=== PATIENT | male | born 1980 | race Caucasian/White ===

== ENCOUNTER → 2016-10-08 | Outpatient (CLI) | payer OTHER ==
[~2016-10-08] MED LIST: ARIP2TAB3 PO; FISH1CAP PO; LAMO100T5 PO; MULT-208 PO; RABE20TA18 PO; TRAM50TA PO
[2016-10-08 14:11] LABS: BASO # 0.1 x10^3/uL (0.0-0.2); BASO % 1 % (0-3); EOS % 2 % (0-3); HEMATOCRIT 42.6 % (39.0-53.0); HEMOGLOBIN 14.6 g/dL (13.0-17.5); LYMPH # 2.8 x10^3/uL (1.0-4.8); LYMPH % 31 % (24-48); MEAN CORPUSCULAR HEMOGLOBIN 32 pg (25-35); MEAN CORPUSCULAR HGB CONC 34 g/dL (31-37); MEAN CORPUSCULAR VOLUME 92 fL (79-100); MONO % 10 % (0-9); NEUT % 56 % (31-73); PLATELET COUNT 255 x10^3/uL (140-400); RED BLOOD COUNT 4.62 x10^6/uL (4.30-5.70); RED CELL DISTRIBUTION WIDTH 13.2 % (11.5-14.5); WHITE BLOOD COUNT 9.1 x10^3/uL (4.0-11.0)
[2016-10-08 14:23] LABS: INR 1.1 (0.8-1.1); PROTHROMBIN TIME PATIENT 13.3 SEC (11.7-14.0)
[2016-10-08 14:24] LABS: ALBUMIN 3.8 g/dL (3.4-5.0); CALCIUM 8.3 mg/dL (8.5-10.1); CREATININE 0.9 mg/dL (0.7-1.3); POTASSIUM 3.6 mmol/L (3.5-5.1)
--- NOTE | 2016-10-08 14:24 | EKG ---
[facility] [address] [place] [address] Test Date: 2016-10-08 Test Time: 14:25:57 Pat Name: DIMITRY REILLY Department: Room: Gender: M Crm Specialist: KAMILLA : 1980 Requested By: ISSA ARSHAD Order Number: [id number] Reading MD: Measurements Intervals [place] Rate: 74 P: 45 MS: 168 QRS: -20 QRSD: 92 T: 6 QT: 378 QTc: 420 Interpretive Statements SINUS RHYTHM LEFTWARD AXIS OTHERWISE NORMAL ECG RI6.01 No previous ECG available for comparison
[2016-10-08 14:34] LABS: BILIRUBIN,URINE NEGATIVE (NEG); GLUCOSE,URINE NEGATIVE (NEG); NITRITE,URINE NEGATIVE (NEG); PROTEIN,URINE NEGATIVE (NEG-TRACE); UROBILINOGEN,URINE 0.2 mg/dL (0.2 mg/dL)
--- NOTE | 2016-10-08 14:49 | RAD ---
INDICATION: PRE OP LEFT SHOULDER REPLACEMENT COMPARISON: None. FINDINGS: 2 views of chest obtained. No focal airspace consolidation. Mediastinal contour is unremarkable. No gross osseous destructive lesion. Cardiac device subcutaneous soft tissues overlying cardiac silhouette. Degenerative spurring of spine. IMPRESSION: No focal airspace consolidation or edema.
[2016-10-08 15:15] LABS: BACTERIA,URINE 0 /HPF (0-FEW); RBC,URINE OCC /HPF (0-2); WBC,URINE 0 /HPF (0-4)
== END | disposition home or self-care (01) ==
LOC: SURGPAT 13:19
PROVIDERS: ATTEND Orthopaedic Surgery
DX: Z01.818 Encounter for other preprocedural examination (principal); Z96.612 Presence of left artificial shoulder joint
CPT/HCPCS: 36415; 71020; 80048; 81001; 82040; 83036; 85027; 85610; 85651; 85730; 87641; 93005

== ENCOUNTER 2016-10-21 08:45 | Inpatient (IN) | payer OTHER ==
[~2016-10-21] VITALS: Ht 177.8 cm; Wt 136.1 kg
[2016-10-27] VITALS (8 sets, daily range): BP systolic 109–127; BP diastolic 58–83
[2016-10-27] MEDS ORDERED: TRANEXAMIC ACID 1,000 MG in IV NS 50ML -- 1ST BAG INJ ONE (06:00)
[2016-10-27] MEDS ORDERED: HYDROcodone/APAP 7.5/325MG 1 TAB TABLET PO PRN (06:00)
[2016-10-27] MEDS ORDERED: MELOXICAM 7.5 MG TABLET PO PRN (06:00)
[2016-10-27] MEDS ORDERED: fentaNYL PF VIAL 100 MCG/2 ML VIAL IV PRN ×2 (07:00)
[2016-10-27] MEDS ORDERED: ONDANSETRON PF 4 MG/2 ML VIAL. IV PRN (07:00)
[2016-10-27] MEDS ORDERED: MORPHINE SULFATE 2 MG/ML DISP.SYRIN. IV PRN (07:00)
[2016-10-27] MEDS ORDERED: LIDOCAINE 1% 1 ML SYRINGE. ID PRN (07:00)
[2016-10-27] MEDS ORDERED: IV RINGERS,LACTATED 1000ML 1,000 ML IV SCH (07:00)
[2016-10-27] MEDS ORDERED: PROCHLORPERAZINE 10 MG/2 ML VIAL. IV PRN (07:00)
[2016-10-27] MEDS ORDERED: HYDROmorphone 2 MG/ML VIAL IV PRN ×3 (07:00→15:00)
[2016-10-27] MEDS ORDERED: TRANEXAMIC ACID 1,000 MG in IV NS 50ML -- 2ND BAG INJ ONE (08:00)
[2016-10-27] MEDS ORDERED: BUPIVACAINE MPF 0.5% 30 ML VIAL. ONE (10:12)
[2016-10-27] MEDS ORDERED: MIDAZOLAM HCL/PF 2 MG/2 ML VIAL. ONE (10:33)
[2016-10-27] MEDS ORDERED: ROCURONIUM 50 MG/5 ML VIAL. ONE (10:33)
[2016-10-27] MEDS ORDERED: fentaNYL PF VIAL 100 MCG/2 ML VIAL ONE ×3 (10:33→15:30)
[2016-10-27] MEDS ORDERED: ISOFLURANE 61 TO 120 MINUTES. IH ONE (10:35)
[2016-10-27] MEDS ORDERED: ONDANSETRON PF 4 MG/2 ML VIAL. ONE (10:35)
[2016-10-27] MEDS ORDERED: PROPOFOL 20 ML IV ONE ×2 (10:35→11:55)
[2016-10-27] MEDS ORDERED: DEXAMETHASONE SOD PHOS 20 MG/5 ML VIAL. ONE (10:35)
[2016-10-27] MEDS ORDERED: LIDOCAINE 2% PF Vial for OR 5 ML VIAL. ONE (10:35)
[2016-10-27] MEDS ORDERED: 0.9 % SODIUM CHLORIDE 50 ML VIAL. IJ ONE (11:58)
[2016-10-27] MEDS ORDERED: PHENYLEPHRINE 10 MG/ML VIAL. ONE (11:58)
--- NOTE | 2016-10-27 12:11 | HP ---
ADMIT DATE: 10/27/2016 CHIEF COMPLAINT: Left shoulder pain and weakness. HISTORY OF PRESENT ILLNESS: The patient has had about a 17-year history of left shoulder pain and weakness. It is his nondominant shoulder, first had problems in the [place] where he underwent a reverse Bankart stabilization and underwent a subsequent capsular shrinkage procedure at [facility]. He had an additional reverse Bankart procedure with the bony block performed by Dr. Elmo Valverde and recurrent instability, underwent a fourth procedure scar tissue excision and reverse Bankart repair, which did not help his ongoing instability or symptoms. He has constant pain in the left nondominant shoulder, can only elevate or forward flex to about 6 degrees and avoids a lot of his activities as a result. He says the shoulder comes in out of joint as he tries to raise it overhead. It keeps him awake at night. It has been significantly more painful in the last 6 months despite undergoing extensive physical therapy with little improvement. He can do his active biking and hiking activities. He has tried several braces without any help in the past as well. PAST MEDICAL HISTORY: Significant for bipolar disorder and esophageal reflux. PAST SURGICAL HISTORY: Multiple left shoulder surgeries. FAMILY HISTORY: Denies any family history. SOCIAL HISTORY: He is a current smoker about a half pack per day. Denies alcohol or drug use. MEDICATIONS: List is reviewed. ALLERGIES: INCLUDE FLUTICASONE, BUPROPION AND PANTOPRAZOLE. REVIEW OF SYSTEMS: Denies any chest pain, shortness of breath, fever, chills, radiating pain, focal weakness, numbness, tingling. PHYSICAL EXAMINATION: VITAL SIGNS: Per his admission sheet. HEENT: Atraumatic, normocephalic. HEART: Regular rate and rhythm. LUNGS: Clear to auscultation bilaterally. ABDOMEN: Benign. EXTREMITIES: Examination of the left shoulder again reveals very poor active range of motion, feelings of instability with any extremes of motion and extensive rotator cuff weakness. Normal examination of the contralateral shoulder, bilateral elbows and wrists. IMAGING: X-rays of the left shoulder show a bony block well positioned with screw fixation. MRI shows significant distortion at the joint level, but rotator cuff with a partial thickness tear of the distal supraspinatus through at least 50% of the tendon substance. IMPRESSION: Left shoulder pain and instability despite multiple surgeries. TREATMENT PLAN: Given his very severe limitations and multiple surgeries and physical therapy bracing that is all failed, he wants to provide to undergo a more definitive procedure to help his function, pain relief and stability of the shoulder. We did talk about the possibility of reverse total shoulder arthroplasty to address all of these issues, but did indicate that this is a low demand type of procedure which would limit his lifting, pushing, pulling. I would expect he will be able to a bicycle with it, but again if this were to fail, it is basically an end-of-the line salvage type procedure, which will leave him with very few options. He is so limited at this time. He does wish to proceed and understands the risks and benefits of possible infection, nerve or blood vessel damage, medical or other anesthetic complications, instability, limited range of motion and possibly continued pain among others. He will proceed with [facility] admission following the procedure. ISSA ARSHAD MD DR: TAYO/megan JOB#: [id number] / [id number]
[2016-10-27] MEDS ORDERED: oxyCODONE/APAP 5/325 1 TAB TABLET PO PRN (15:00)
[2016-10-27] MEDS ORDERED: 0.9 % SODIUM CHLORIDE 10 ML DISP.SYRIN. IV PRN (15:00)
[2016-10-27] MEDS ORDERED: PROCHLORPERAZINE 5 MG TABLET. PO PRN (15:00)
[2016-10-27] MEDS ORDERED: ZOLPIDEM 5 MG TABLET. PO PRN (15:00)
[2016-10-27] MEDS ORDERED: ACETAMINOPHEN 325 MG TABLET. PO PRN (15:00)
[2016-10-27] MEDS ORDERED: traMADol 50 MG TABLET PO PRN ×2 (15:00)
[2016-10-27] MEDS ORDERED: DEXTROSE 50% 25 GM / 50ML DISP.SYRIN. IV PRN (15:00)
--- NOTE | 2016-10-27 15:52 | RAD ---
Three-view left shoulder radiographs 10/27/2016 Clinical history: Post left shoulder surgery. Portable AP internal and external rotation and two transscapular portable digital radiographs of the left shoulder were obtained. The patient is status post left shoulder joint replacement. The prosthetic components are intact. No fracture or dislocation is seen. Impression: Post left shoulder joint replacement. No acute osseous abnormality is seen.
[2016-10-27] MEDS: NICOTINE 21MG PATCH. TD SCH (17:35)
[2016-10-27] MEDS: FERROUS SULFATE 325 MG TABLET. PO SCH (17:35)
[2016-10-27] MEDS: IV DEXTROSE 5 %-0.45 % NACL 1,000 ML IV SCH (17:37)
[2016-10-27] MEDS: CELECOXIB 200 MG CAPSULE. PO SCH (21:00)
--- NOTE | 2016-10-27 21:42 | PDOC4 ---
Operative Note Operative Note Date of surgery: 10/27/2016 Preoperative diagnosis: Left shoulder instability and pseudoparalysis, severe pain and DJD Postoperative diagnosis: Left shoulder instability DJD significant partial- thickness rotator cuff tear and biceps anchor fraying Operative procedure: Left reverse total shoulder arthroplasty and biceps tenodesis Surgeon: Betsy Anesthesia: Gen. endotracheal plus scalene block, Dr. Laurent Estimated blood loss 150 mL Complications: None Operative indications: Patient is a 36-year-old male that has had about a 17 year history of left shoulder pain instability weakness and severe limitations in his activities of daily living. He first had instability of his left shoulder due to an injury in the [place] underwent a posterior Bankart repair which unfortunately failed. He subsequently underwent a capsular shrinkage procedure it [facility] which likewise failed and underwent a posterior Bankart repair with bony block by Dr. Elmo Valverde which initially helped his stability but within a few months redeveloped his instability and underwent a additional procedure of attempted bony Bankart repair subsequently. He has had ongoing instability since each of these procedures and markedly increased pain over the past 6 months. He indicates he can only lift his arm about 60 at most if he attempts to stretch his arm any further than that which he cannot do actively, the shoulder tends to dislocate. He is extremely limited both in terms of his activities of daily living as well as his desired activities of active hiking and biking. The increased pain and limitations are very severely limiting to his activities and quality of life and he wants to proceed with a more definitive treatment. I had talked with him about possibility of a reverse total shoulder arthroplasty which could help his function as his rotator cuff was not functioning well he has degenerative changes at the glenohumeral joint. We did talk about the possibility of premature wear or loosening and the possibility of instability, infection, nerve or blood vessel damage medical or other anesthetic complications among others. All his questions were answered and above all he verbalizes understanding that he really has to limit any heavy lifting type activities or other issues that would cause the shoulder to loosen as this is a salvage type procedure designed to give him relief of his symptoms and hopefully reasonable limited function. He agrees to proceed with surgical evaluation and treatment today following informed consent Operative text: Patient was identified procedure verified patient placed in the supine position on operating table after adequate much of general endotracheal anesthesia and a pre-existing scalene block were obtained, he was placed in the beachchair position with the spider arm malave all bony prominences were well- padded and the left shoulder was prepped and draped in standard sterile fashion. After timeout was performed patient and procedure identified and verified, his recurrent posterior instability was verified, and an incision was made using a deltopectoral approach. Cephalic vein was taken laterally along with the deltoid. Clavipectoral fascia was taken down. The subscapularis was taken down at its insertion and was tagged biceps tendon was noted to be frayed at its base and was seen at [place] he had significant glenohumeral degenerative changes present. The humerus was then exposed and reaming carried out up to a size 15 where a cut was made to accommodate the reverse total shoulder arthroplasty component at a 10 version. Reaming was carried out and a size 15 provisional trial component was placed capsular release was carried out glenoid was exposed and a guidewire placed low centrally on the glenoid and reaming was carried out. Good bleeding bone was noted inferiorly his desired there was a small defect slightly posterior central and superior were some bone graft from the humeral head was placed following the glenoid baseplate preparation. Glenoid baseplate was placed with a standard 15 mm trabecular metal ingrowth surface which gave excellent stability. 2 48 mm screws were then placed inferiorly down the scapular spine and superiorly at the base of the coracoid both got excellent bite and were locked with locking caps. A 36 mm glenoid sphere was impacted in place to engage the Lawrence taper and sizing was carried out with a +6 standard implant. Excellent stability was noted throughout motion was full as desired and no impingement resulted. Further there was excellent tension on the deltoid as desired with good stability in all planes. Trial components were then removed from the humeral side and a size 15 Papo grit blast component was placed with excellent stability and a +6 standard liner was impacted into place. Thorough irrigation was carried out normal saline solution shoulder was reduced and had equivalent motion and stability to the trial fitting. Subscapularis was thoroughly repaired at its insertion biceps tenodesis was reinforced. Pectoralis release was not necessary during the procedure subcutaneous closure accomplished with buried Vicryl plus suture skin closure with paresh sterile dressings were applied patient was placed in an immobilizer extubated transferred to postop holding in stable condition having tolerated the procedure well ISSA ARSHAD MD Oct 27, 2016 21:42
[2016-10-27] MEDS: oxyCODONE/APAP 7.5/325 1 TAB TABLET PO PRN (22:57)
[2016-10-28] MEDS: CALCIUM CARBONATE 500 MG TAB.CHEW PO PRN ×2 (00:12→13:19)
[2016-10-28] MEDS: IV DEXTROSE 5 %-0.45 % NACL 1,000 ML IV SCH (00:59)
--- NOTE | 2016-10-28 02:19 | ACF ---
Admission Forms Criteria MUSCULOSKELETAL DISEASE GRG Clinical Indications for Admission to Inpatient Care (Place 'X' for any and all applicable criteria): Hospital admission is needed for appropriate care of the patient because of 1 or more of the following: [X]I. Fracture, dislocation, or other musculoskeletal injury requiring inpatient care(medical) as indicated by 1 or more of the following(4)(5)(6)(7) [ ]a) Vertebral fracture requiring observation for instability or neurologic compromise (8) [ ]b) Compartment syndrome (proven or cannot be ruled out during observation level of care) (9) [ ]c) Limb-threatening injury [ ]d) Major injury requiring inpatient stabilization such as traction initiation or external fixation before internal fixation or closure of complex or open fracture [ ]e) Major injury requiring inpatient treatment after emergency or observation level care (as appropriate) [X]f) Severe pain requiring acute inpatient management [ ]g) Injury with suspicion of abuse or neglect (eg., child, dependent elderly) [ ]II. Newly diagnosed or suspected bone, joint, or orthopedic device infection (e.g., osteomyelitis, septic arthritis) needing 1 or more of the following(1)(2)(3) [ ]a) IV antibiotics that cannot be initiated in other than inpatient setting (e.g., patient too unstable or home infusion not available) [ ]b) Device removal or replacement [ ]c) Bone or soft tissue debridement [ ]d) Joint drainage (drain placement or repetitive aspirations) [ ]III. Severe rheumatologic disease (e.g., systemic lupus erythematosus, rheumatoid arthritis) with complications or comorbidities (Also use Optimal Recovery Care Criteria or General Recovery Criteria as appropriate on the basis of predominant condition), including 1 or more of the following( 10)(11)(12)(13) [ ]a) Severe infection (e.g., AUTOMOBILE UPHOLSTERER infection, sepsis) (14) [ ]b) Respiratory complications, including 1 or more of the following : [ ]i) Pleural effusion with respiratory compromise [ ]ii) Pulmonary hypertension with congestive failure [ ]iii) Respiratory failure [ ]iv) Pulmonary hemorrhage (15) [ ]c) Hematologic disease, including 1 or more of the following: [ ]i) Coagulopathy with bleeding [ ]ii) Thrombosis with hypercoagulable state [ ]iii) Thrombotic thrombocytopenic purpura [ ]d) Cerebritis with seizures, psychosis, or other severe abnormalities [ ]e) Vertebral destruction with monitoring needed for cervical myelopathy& possible respiratory compromise [ ]f) Exacerbation that requires inpatient treatment (e.g., intravenous immunosuppression) (16) [ ]g) Acute renal failure [ ]h) Cerebritis with seizures, psychosis, Altered mental status, or other neurologic abnormalities [ ]i) Pericardial effusion with tamponade [ ]j) Vertebral destruction, with monitoring needed for cervical myelopathy and possible respiratory compromise [ ]IV. Severe vasculitis with complications or comorbidities (Also use Optimal Recovery Care Criteria General Recovery Criteria as appropriate on the basis of predominant condition), including 1 or more of the following(11)(12)(17)(18)(19)(20) [ ]a) Exacerbation that requires inpatient treatment (e.g., intravenous immunosuppression) (19)(21) [ ]b) Pulmonary hemorrhage (15) [ ]c) AUTOMOBILE UPHOLSTERER vasculitis with seizures, psychosis, Altered mental status that is severe or persistent, or other severe abnormalities (22) [ ]d) Cerebral infarction [ ]e) Gastrointestinal ischemia [ ]f) Gangrene or threatened amputation [ ]g) Renal failure (16) [ ]h) Other significant complications of vasculitis ( eg., tissue or organ ischemia, organ dysfunction ) [ ]V. Severe myopathy as indicated by 1 or more of the following (28)(29) [ ]a) New onset of airway compromise or inability to swallow [ ]b) Respiratory deterioration with observation needed for impending respiratory failure [ ]c) Exacerbation that requires inpatient treatment (e.g., intravenous immunosuppression) [ ]. Severe crystal gout (arthropathy) indicated by 1 or more of the following (23)(24) [ ]a) Severe pain requiring acute inpatient management [ ]b) Exacerbation that requires inpatient treatment (e.g., intravenous treatment) [ ]VII.Rhabdomyolysis and 1 or more of the following (25)(26)(27) [ ]a) Acute renal failure [ ]b) Need for intravenous hydration after emergency or observation level care (as appropriate) [ ]c) Inability to maintain oral hydration [ ]d) Change in mental status [ ]e) Electrolyte abnormality that remains after emergency or observation level care (as appropriate) [ ]VIII Post amputation complication, as indicated by ANY ONE of the following [ ]a) Infection [ ]b) Dehiscence [ ]c) Myodesis failure [ ]IX. Severe pain requiring acute inpatient management due to musculoskeletal condition [ ]X. Musculoskeletal Disease and ALL of the following: [ ]a) Symptom or finding for which emergency and observation care have failed or are not considered appropriate (Use General Criteria: Observation Care as appropriate) [ ]b) Presence of ANY ONE of the following [ ]i) A General Admission Criteria [ ]ii) A Pediatric General Admission Criteria The original [facility] [employer] content created by [facility] has been revised. The portions of the content which have been revised are identified through the use of italic text or in bold, and [facility] has neither reviewed nor approved the modified material. All other unmodified content is copyright [facility]. Please see references footnoted in the original [facility] edition 2016 Admission Criteria Met?: Yes JR VALENCIA Oct 28, 2016 02:19
[2016-10-28] MEDS ORDERED: MAGNESIUM HYDROXIDE 2,400 MG/30 ML ORAL.SUSP. PO PRN (06:00)
[2016-10-28] MEDS: oxyCODONE/APAP 7.5/325 1 TAB TABLET PO PRN ×2 (06:25→10:32)
[2016-10-28 07:30] VITALS: BP 126/70
[2016-10-28] MEDS: CELECOXIB 200 MG CAPSULE. PO SCH (07:55)
[2016-10-28] MEDS: FERROUS SULFATE 325 MG TABLET. PO SCH (07:55)
[2016-10-28] MEDS: NICOTINE 21MG PATCH. TD SCH (07:59)
[2016-10-28] MEDS ORDERED: SENNOSIDES/DOCUSATE 8.6/50MG TABLET. PO SCH (09:00)
[2016-10-28] MEDS ORDERED: MULTIVITAMIN with MINERAL TABLET. PO SCH (09:00)
[2016-10-28 15:15] VITALS: BP 139/86
[2016-10-28] MEDS ORDERED: BISACODYL 10 MG SUPP.RECT. PR PRN (16:00)
--- NOTE | 2016-10-28 22:12 | DS ---
DATE OF DISCHARGE: 10/28/2016 PRINCIPAL DIAGNOSIS: Left shoulder severe pain and instability, pseudoparalysis. PROCEDURE: Left reverse total shoulder arthroplasty. DISCHARGE INSTRUCTIONS: Activity level standard, reverse total shoulder precautions. May shower with dressing intact. Follow up in about [address] Meyer, physical therapy at the [facility] in the interim with passive and active range of motion. Permitted to avoid extreme internal rotation such as tucking in the shirt behind the back. Call for any uncontrolled pain, fever, chills, redness, drainage or other problems. DISPOSITION MEDICATIONS: Include [place] 7.5/325 one p.o. q. 6 hours p.r.n. pain. BRIEF DESCRIPTION OF HOSPITAL COURSE: The patient underwent an uncomplicated left reverse total shoulder arthroplasty yesterday. Postoperatively, did well. He is well controlled on pain medications following resolution of the pain block. His distal pulses and sensation are intact throughout. He remained stable medically and was discharged to home in stable condition. ISSA MEYER MD DR: TAYO/nts JOB#: [id number] / [id number]
--- NOTE | 2016-10-29 16:59 | PATHOLOGY ---
PATHOLOGY REPORT * * * * * * * * FINAL DIAGNOSIS: Segment of bone and soft tissue, left reverse total shoulder arthroplasty: - Degenerative arthritis. (JPM:mml; 10/29/2016) REPORT ELECTRONICALLY SIGNED BY: Gurpreet Coles M.D. DATE/TIME: 10/29/2016 16:58 * * * * * * * * GROSS PATHOLOGY: The specimen is received in formalin, labeled "Young-left shoulder bone and tissue" is a 5.4 x 5.2 x 1.7 cm garg-brown half spherical-shaped segment of bone. The specimen displays a 1.4 cm in diameter hole drilled into one aspect of the specimen on the periphery. The specimen displays a small amount of attached garg-brown soft friable tissue. The articular surface of the specimen is garg to brown and smooth with focal areas of erosion. Sectioning through the specimen reveals a yellow-garg hard trabeculated cut surface and an articular surface ranging in thickness from less than 0.1 cm up to 0.3 cm. Gum Sprayer sections of the specimen are submitted in cassette A1 following decalcification. (AKA; 10/28/2016) INITIAL CPT CODE(S): A; 45243, 56274 Professional services performed [place] [facility] [place] [address] Technical services performed by [facility] at [address] [place] [address] [address], [place] [address]. SPECIMEN(S) RECEIVED: A.Left shoulder bone and tissue CLINICAL HISTORY: Left shoulder pain and instability PATIENT: DIMITRY REILLY Fahad /AGE: 3 1980 (Age: 36) PATIENT #: [id number] ALT CASE #: SPECIMEN COLLECTION DATE: 10/27/2016 SPECIMEN RECEIVED DATE: 10/27/2016 [facility] - [id number] [place] [address] - PHONE: [phone] * * * END OF REPORT * * *
== END 2016-10-28 15:45 | disposition home or self-care (01) | DRG 483 ==
LOC: OPSVCIP 10-27 09:24 → 4 SOUTHEST 10-27 16:35
PROVIDERS: ADMIT Orthopaedic Surgery; ATTEND Orthopaedic Surgery
PROC: 0LS40ZZ Reposition Left Upper Arm Tendon, Open Approach (ICD-10-PCS; 2016-10-27)
PROC: 0RRK00Z Replacement of Left Shoulder Joint with Reverse Ball and Socket Synthetic Substitute, Open Approach (ICD-10-PCS; principal; 2016-10-27 11:00)
DX: M19.012 Primary osteoarthritis, left shoulder (principal); M25.312 Other instability, left shoulder; K21.9 Gastro-esophageal reflux disease without esophagitis; F31.9 Bipolar disorder, unspecified; M75.102 Unspecified rotator cuff tear or rupture of left shoulder, not specified as traumatic; F17.210 Nicotine dependence, cigarettes, uncomplicated; Z96.612 Presence of left artificial shoulder joint; Z88.8 Allergy status to other drugs, medicaments and biological substances; Z79.899 Other long term (current) drug therapy
CPT/HCPCS: 36415; 73030; 86850; 86900; 86901; 99406; J0690; J1100; J2001; J2250; J2405; J2704; J3010; J3490; J7030; J7120; 97110; C1769